=== PATIENT | male | born 1970 | race Caucasian/White ===

== ENCOUNTER 2018-07-02 14:00 | Emergency (ER) | payer OTHER ==
[2018-07-02 14:20] VITALS: BP 130/83; PULSE 90; TEMP 97.8; BMI 25.0
[2018-07-02] MEDS ORDERED: IBUPROFEN 600 MG TABLET (FP) PO ONE ×2 (14:23→14:24)
--- NOTE | 2018-07-02 14:24 | PDOC ---
History of Present Illness - History of Present Illness Initial Comments: 07/02/18 14:33 The patient is a 48 year old male, with no significant past medical history, who presents to the emergency department s/p right shoulder injury with pain to the shoulder. As per patient, yesterday he was performing a swiping motion with his right hand and began to experience discomfort in his right shoulder. He notes decreased ROM of the right shoulder with abduction and external rotation secondary to pain. Patient notes he has injured his right shoulder in the past which he has followed up with an orthopedist for. He denies any weakness or tingling to the extremities. He denies any trauma to the bilateral LE or left UE. He denies any recent fevers, chills, headache or dizziness. He denies any recent nausea, vomit, diarrhea or constipation. He denies any recent chest pain or shortness of breath. He denies any recent dysuria, frequency, urgency or hematuria. Allergies: NKDA Past surgical history: None reported. Social History: Smoker (20 cigarettes per day). Primary Care Physician: Dr. Rimma Charles <Javier Aguilera - Last Filed: 07/02/18 14:33> - General History Source: Patient Exam Limitations: No Limitations <Swetha Rowland - Last Filed: 07/02/18 14:58> - General Chief Complaint: Injury Stated Complaint: RIGHT SHOULDER PAIN Time Seen by Provider: 07/02/18 14:20 Past History <Javier Aguilera - Last Filed: 07/02/18 14:33> - Past Medical History COPD: No - Suicide/Smoking/Psychosocial Hx Smoking History: Current every day smoker Number of Cigarettes Smoked Daily: 20 Information on smoking cessation initiated: Yes 'Breaking Loose' booklet given: 07/02/18 <Swetha Rowland - Last Filed: 07/02/18 14:58> - Past Medical History Allergies/Adverse Reactions: Allergies Allergy/AdvReac Type Severity Reaction Status Date / Time No Known Allergies Allergy Verified 07/02/18 14:03 Home Medications: Ambulatory Orders Ibuprofen 400 mg PO TID PRN 07/02/18 Ibuprofen [Motrin -] 600 mg PO TID #90 tablet 07/02/18 Review of Systems - Review of Systems Able to Perform ROS?: Yes Comments:: 07/02/18 14:34 GENERAL/CONSTITUTIONAL: No fever or chills. No weakness. HEAD, EYES, EARS, NOSE AND THROAT: No change in vision. No ear pain or discharge. No sore throat. CARDIOVASCULAR: No chest pain or shortness of breath. RESPIRATORY: No cough, wheezing, or hemoptysis. GASTROINTESTINAL: No nausea, vomiting, diarrhea or constipation. GENITOURINARY: No dysuria, frequency, or change in urination. +MUSCULOSKELETAL: Right shoulder pain with decreased ROM. No joint or muscle swelling. No neck or back pain. SKIN: No rash NEUROLOGIC: No headache, vertigo, loss of consciousness, or change in strength/ sensation. ENDOCRINE: No increased thirst. No abnormal weight change. HEMATOLOGIC/LYMPHATIC: No anemia, easy bleeding, or history of blood clots. ALLERGIC/IMMUNOLOGIC: No hives or skin allergy. All Other Systems: Reviewed and Negative <Javier Aguilera - Last Filed: 07/02/18 14:33> *Physical Exam - Vital Signs Last Vital Signs Temp Pulse Resp BP Pulse Ox 97.8 F 90 16 130/83 99 07/02/18 14:02 07/02/18 14:02 07/02/18 14:02 07/02/18 14:02 07/02/18 14:02 - Physical Exam Comments: 07/02/18 14:35 GENERAL: Awake, alert, and fully oriented, in no acute distress HEAD: No signs of trauma EYES: PERRLA, EOMI, sclera anicteric, conjunctiva clear ENT: Auricles normal inspection, hearing grossly normal, nares patent. Moist mucosa NECK: Normal ROM, supple, no lymphadenopathy, JVD, or masses LUNGS: Breath sounds equal, clear to auscultation bilaterally. No wheezes, and no crackles HEART: Regular rate and rhythm, normal S1 and S2, no murmurs, rubs or gallops ABDOMEN: Soft, nontender, normoactive bowel sounds. No guarding, no rebound. No masses +EXTREMITIES: Right shoulder: Pain with external rotation and abduction >90 degrees. Elbow and wrist, nontender. Distal extremities are neurovascularly intact. Motor sensation 5/5. Bilateral LE and left UE: Atraumatic. Normal range of motion, no edema to bilateral LE and left UE. No erythema or tenderness. DP/ PT pulses 2+ and symmetric. Warm and well perfused. NEUROLOGICAL: Moves all extremities. Normal speech, normal gait SKIN: Warm, Dry, normal turgor, no rashes or lesions noted. <Javier Aguilera - Last Filed: 07/02/18 14:33> - Vital Signs Last Vital Signs Temp Pulse Resp BP Pulse Ox 97.8 F 90 16 130/83 99 07/02/18 14:02 07/02/18 14:02 07/02/18 14:02 07/02/18 14:02 07/02/18 14:02 <Swetha Rowland - Last Filed: 07/02/18 14:58> ED Treatment Course - Medications Given in the ED: ED Medications Discontinued Medications Generic Name Dose Route Start Last Admin Trade Name Abq PRN Reason Stop Dose Admin Ibuprofen 600 mg 07/02/18 14:24 07/02/18 14:26 Motrin - PO 07/02/18 14:25 600 mg ONCE ONE Administration <Javier Aguilera - Last Filed: 07/02/18 14:33> Medical Decision Making - Medical Decision Making 07/02/18 14:21 48 yo male h/o tobacco use here with c/o right shoulder injury following hitting something out of his gf hand while they were fooling around, now c/o right shoulder, pain. no new numbness or tingling. plan xray r/o fx, pain control. with nsaids. <Swetha Rowland - Last Filed: 07/02/18 14:58> *DC/Admit/Observation/Transfer - Attestations Scribe Attestion: 07/02/18 14:35 Documentation prepared by Javier Aguilera, acting as medical claims assistant for Swetha Rowland MD. <Javier Aguilera - Last Filed: 07/02/18 14:33> <Swetha Rowland - Last Filed: 07/02/18 14:58> Diagnosis at time of Disposition: Shoulder injury - Discharge Dispostion Disposition: HOME Condition at time of disposition: Improved - Prescriptions Prescriptions: Ibuprofen [Motrin -] 600 mg PO TID #90 tablet - Referrals Referrals: Jaz Charles MD [Primary Care Provider] - Ilana Ojeda MD [Non Staff, Medical] - Osmin Judge MD [Staff Physician] - - Patient Instructions Additional Instructions: you should follow up with your orthopedist. Ilana Carr. you can also follow up with dr. judge if you wish. you can take ibuprofen 600 mg every 8 hrs as needed for pain. if an activity or motion with your shoulder hurts you should avoid from doing that motion. you can also take tylenol 500 mg every 6 hrs as needed for pain. you xrays are negative for any broken bones. - Post Discharge Activity
== END 2018-07-02 15:12 | disposition home or self-care (01) ==
LOC: FER 14:00
DX: S49.91XA Unspecified injury of right shoulder and upper arm, initial encounter (principal); X58.XXXA Exposure to other specified factors, initial encounter; Y93.89 Activity, other specified; Y92.89 Other specified places as the place of occurrence of the external cause; F17.210 Nicotine dependence, cigarettes, uncomplicated
CPT/HCPCS: 73030-TC-RT-FY; 99281-25

== ENCOUNTER 2018-11-24 06:04 | Day surgery (SDC) | payer OTHER ==
[2018-11-21 11:51] VITALS: BMI 24.4
[2018-11-24] MEDS ORDERED: ROPIVACAINE HCL 0.5% 30ML VIAL ONE (07:24)
[2018-11-24] MEDS ORDERED: DEXAMETHASONE SOD PHOSPHATE/PF 10 MG/ML SDV ONE (07:24)
[2018-11-24] MEDS ORDERED: MIDAZOLAM HCL 2 MG/2 ML SINGLE DOSE VIAL ONE ×2 (07:24→09:02)
--- NOTE | 2018-11-24 07:35 | OP ---
Operative Note - Note: Operative Date: 11/24/18 Pre-Operative Diagnosis: Right rotator cuff tear Operation: Right shoulder arthroscopy with rotator cuff repair Implants: [employer] SwiveLock x2, [employer] C-Fix x2, [employer] Multifix x1 Post-Operative Diagnosis: Same as Pre-op Surgeon: Osmin Perkins Rug Washer: Naye Xie Anesthesiologist/WATER TREATMENT OPERATOR: Natalie Garcia Anesthesia: General Operative Report Dictated: Yes
[2018-11-24] MEDS ORDERED: PROPOFOL 20 ML ONE ×2 (07:53→08:59)
[2018-11-24] MEDS ORDERED: ceFAZolin SODIUM 1 GM VIAL ONE (07:54)
[2018-11-24] MEDS ORDERED: EPINEPHrine 1:1,000 1 MG/1 ML - 30ML VIAL (INJECTION) ONE (10:35)
[2018-11-24 12:29] VITALS: TEMP 98.3
--- NOTE | 2018-11-24 12:41 | OP ---
DATE OF OPERATION: 11/24/2018 PREOPERATIVE DIAGNOSIS: Right shoulder rotator cuff tear, impingement. POSTOPERATIVE DIAGNOSIS: Right shoulder rotator cuff tear, impingement. PROCEDURE: Right shoulder arthroscopy with repair of supraspinatus, infraspinatus and subscapularis, subacromial decompression. SURGEON: Roel Perrin MD TAXI PROPRIETOR: GINNY Kwon, whose skillful assistance was necessary for the safe and timely performance of this procedure. Ms. Xie was able to provide assistance in positioning, assist in driving the camera, assist in suture passing and suture management as well as the insertion of orthopedic fixation hardware while the surgical clinical reviewer was manipulating complex instrumentation on the back table. ANESTHESIA: Regional plus LMA. POSTOPERATIVE CONDITION: Stable. COMPLICATIONS: None. IMPLANTS: Arthrex SwiveLock x2, [employer] Q-FIX x2, [employer] MULTIFIX x1. INDICATIONS: This is a pleasant gentleman who had been suffering from shoulder pain and weakness. He was found to have a rotator cuff tear on MRI. Treatment options including nonoperative versus operative management were reviewed. Operative risks were reviewed in detail including bleeding, infection, neurovascular injury, need for further surgery, postoperative pain and stiffness, progression of osteoarthritis. We discussed medical risks such as heart attack, stroke, DVT, PE and . I addressed the use of perioperative antibiotic and DVT prophylaxis. I reviewed the lengthy recovery and activity limitations. I addressed all the patient's questions and concerns. He voiced understanding and elected to proceed. PROCEDURE: Patient was brought to the operating room where he was placed in the beach-chair position. He previously had been given a regional block in the preoperative holding area. Care was taken to pad all the bony prominences and place the neck into a neutral position while he was still awake. The patient was then prepped and draped in the usual sterile fashion. A preoperative dose of antibiotics was given and the usual timeout procedure was performed. The bony landmarks were marked out. The posterior viewing portal was then established with an 11 blade. An arthroscope was then passed into the glenohumeral joint. Examination of the joint itself demonstrated minimal articular wear. The anterior portal was now established with spinal needle localization. Examination of the biceps demonstrated no adhesions. Examination of the superior labrum demonstrated some degenerative tearing; however, it was not unstable. The arthroscope was passed anteriorly demonstrating that there was no evidence of a subscapularis and the footprint was seen to be completely devoid of any tendon. There was a high grade partial- thickness tear of the supraspinatus and infraspinatus noted. There was degenerative change throughout the anterior, inferior and posterior labrum; however, no roberto carlos tearing was noted. At this point the shaver was passed in and some debridement was carried along the anterior capsule. The detached end of the subscapularis was identified. A luggage tag type suture was now placed through the end of the subscapularis, which was retracted just past the level of the glenoid. Utilizing additional viewing portal anterolaterally, the shaver was used to define the distal end of the subscapularis tendon. A switching stick was then used with its blunt end to slide along the anterior, superior and posterior aspects of the subscapularis to free it up to gain better mobility as it was not able to be reduced to the footprint. The footprint was debrided down to bleeding bone. This was done using the shaver as well as electrocautery. There was still a significant amount of tension on the subscapularis. Decision was made to now go back and repair the superior portion of the rotator cuff, perhaps relieving some of the tension on the subscapularis. The shaver was passed and the footprint of the supraspinatus and infraspinatus was now debrided down to bleeding bone as well. The arthroscope was passed in the subacromial space. Here the electrocautery was used to provide a subacromial decompression. There was diffuse fraying in the space as well as an additional tear of the rotator cuff noted. Here, a longitudinal tear was noted at the junction of the anterior third and posterior 2/3 of the supraspinatus. No full-thickness tear was noted along the footprint itself. The arthroscope was passed back into the glenohumeral joint. Utilizing percutaneous technique, 2 Q-FIX anchors were drilled as a medial row. They were then passed through the rotator cuff utilizing combination of a suture passer as well as a spinal needle and Prolene suture. The arthroscope was then passed back into the subacromial space. One pair of each suture was now tied, securing down the medial row. The other suture limbs were then tied to each other forming a bridge between the anterior and posterior anchor at the subacromial space. All the sutures were now brought into a lateral row fixation. This was done by abducting the arm, debriding a small area of soft tissue off the bone, and inserting the MULTIFIX anchor on the lateral aspect of the greater tuberosity. This secured the formation into a triangular double-row construct. The excess sutures were now cut. Attention was now turned back to the glenohumeral joint. Here, the previously passed luggage tag sutures, 3 in all, were now used to mobilize down to the lesser tuberosity. We were able to achieve repair utilizing minimal tension. The 2 inferior sutures were loaded into a SwiveLock anchor which was then punched and inserted into the lesser tuberosity. This reduced the subscapularis onto its footprint. A second anchor was used to secure the more superior border. These excess sutures were then cut. At this point, the excess fluid was withdrawn from the joint. The portals were sutured using 3-0 nylon. Sterile dressings were placed. It should be noted that during the case the patient became a bit agitated while on sedation. An LMA was placed to maintain patient under proper anesthetic control. At the end of the case it was noted he had subsided significantly down on the table and was resting his right axillary area somewhat on the kidney rest. This was corrected as soon as it was identified and patient was transferred to recovery room in stable condition. ROEL PERRIN M.D. [id number] MTDD
[2018-11-24] MEDS ORDERED: oxyCODONE HCL 5 MG TABLET ONE (12:42)
[2018-11-24] MEDS ORDERED: oxyCODONE HCL 5 MG TABLET PO ONE (12:45)
[2018-11-24] MEDS ORDERED: oxyCODONE HCL 5 MG TABLET PO PRN (12:51)
[2018-11-24] MEDS ORDERED: ONDANSETRON 4 MG/2 ML VIAL IVPUSH PRN (12:51)
[2018-11-24] MEDS ORDERED: LACTATED RINGERS SOLUTION 1,000 ML IV SCH (13:00)
[2018-11-24 14:01] VITALS: PULSE 86
[2018-11-24 14:10] VITALS: BP 138/80
== END 2018-11-24 13:45 | disposition home or self-care (01) ==
LOC: FASU 06:04 → MERGE 06:04 → FASU 13:45
PROVIDERS: ATTEND Orthopaedic Surgery Sports Medicine
PROC: 0RNJ4ZZ Release Right Shoulder Joint, Percutaneous Endoscopic Approach (ICD-10-PCS; 2018-11-24)
PROC: 0RBJ4ZZ Excision of Right Shoulder Joint, Percutaneous Endoscopic Approach (ICD-10-PCS; 2018-11-24)
PROC: 0LQ14ZZ Repair Right Shoulder Tendon, Percutaneous Endoscopic Approach (ICD-10-PCS; principal; 2018-11-24 08:20)
PROC: 0RHJ44Z Insertion of Internal Fixation Device into Right Shoulder Joint, Percutaneous Endoscopic Approach (ICD-10-PCS; 2018-11-24 08:20)
DX: M75.111 Incomplete rotator cuff tear or rupture of right shoulder, not specified as traumatic (principal); M75.41 Impingement syndrome of right shoulder
CPT/HCPCS: 94760

== ENCOUNTER → 2019-02-02 | Day surgery (SDC) | payer OTHER | LOC: JASU-ENDO 11:02 ==

== ENCOUNTER 2019-02-16 08:17 | Day surgery (SDC) | payer OTHER ==
[2019-02-15 11:26] VITALS: BMI 23.3
[2019-02-16] MEDS ORDERED: MIDAZOLAM HCL 2 MG/2 ML SINGLE DOSE VIAL ONE (08:32)
[2019-02-16 09:29] VITALS: TEMP 98.3
[2019-02-16 10:25] VITALS: BP 117/71; PULSE 53
--- NOTE | 2019-02-17 15:45 | PATH ---
Surgical Pathology Report Patient Name: AMY TERRY [facility]. Rec. #: [id number] /Age/Gender: 1970 (Age: 48) / M Account: [id number] Location: [facility]-ENDOSCOPY Taken: 02/16/2019 Received: 02/16/2019 Reported: 02/17/2019 Physicians: Nilay Adames D.O. Specimen(s) Received A: BX 2ND PORTION DUODENUM AND BULB B: BX ANTRUM C: BX BODY Clinical History Weight loss Postoperative diagnosis: Gastritis Final Diagnosis A. SECOND PORTION OF DUODENUM AND BULB, BIOPSY: DUODENAL MUCOSA WITH MILD CHRONIC DUODENITIS. NO HISTOLOGIC EVIDENCE OF CELIAC DISEASE. B. ANTRUM, BIOPSY: GASTRIC MUCOSA WITH MILD CHRONIC GASTRITIS. IMMUNOSTAIN FOR H. PYLORI IS NEGATIVE. NEGATIVE FOR INTESTINAL METAPLASIA. C. BODY, BIOPSY: GASTRIC MUCOSA WITH MILD CHRONIC GASTRITIS. IMMUNOSTAIN FOR H. PYLORI IS NEGATIVE. NEGATIVE FOR INTESTINAL METAPLASIA. Electronically Signed Cecy Shabazz M.D. Gross Description A. Received in formalin, labeled "biopsy second portion of duodenum and bulb" are 6 boyce, irregular portions of soft tissue ranging from 0.2-0.4 cm. in greatest dimension. The specimens are submitted in toto in one cassette. B. Received in formalin, labeled "biopsy antrum" is a boyce, irregular portion of soft tissue measuring 0.5 cm. in greatest dimension. The specimen is submitted in toto in one cassette. C. Received in formalin, labeled "biopsy body of stomach" are 3 boyce, irregular portions of soft tissue ranging from 0.2-0.5 cm. in greatest dimension. The specimens are submitted in toto in one cassette. /02/16/2019 [facility]02/16/2019
== END 2019-02-16 10:25 | disposition home or self-care (01) ==
LOC: JASU-ENDO 08:17
PROVIDERS: ATTEND Internal Medicine Gastroenterology
PROC: 0DB68ZX Excision of Stomach, Via Natural or Artificial Opening Endoscopic, Diagnostic (ICD-10-PCS; 2019-02-16)
PROC: 0DB98ZX Excision of Duodenum, Via Natural or Artificial Opening Endoscopic, Diagnostic (ICD-10-PCS; principal; 2019-02-16 09:00)
DX: K29.50 Unspecified chronic gastritis without bleeding (principal); K29.80 Duodenitis without bleeding
CPT/HCPCS: 88305-TC; 88342-TC

== ENCOUNTER 2020-11-27 22:55 | Emergency (ER) | payer OTHER ==
[2020-11-27 23:09] VITALS: BP 151/99; PULSE 88; TEMP 98.3; BMI 23.0
[2020-11-28 00:43] LABS: BASO % 1.1 % (0-2.0); HEMATOCRIT 43.6 % (35.4-49); HEMOGLOBIN 14.8 GM/dL (11.7-16.9); MCH 31.5 pg (25.7-33.7); MCHC 33.9 g/dl (32.0-35.9); MEAN PLT VOLUME 8.8 fl (7.5-11.1); MONO % 6.7 % (3.8-10.2); NEUT % 68.2 % (42.8-82.8); PLATELET COUNT 254 K/MM3 (134-434); RBC 4.69 M/mm3 (4.00-5.60); RDW 13.5 % (11.9-15.9); WHITE BLOOD COUNT 10.7 K/mm3 (4.0-10.0)
== END 2020-11-28 02:09 | disposition left against medical advice (07) ==
LOC: JER 22:55
DX: R06.02 Shortness of breath (principal)
CPT/HCPCS: 36415; 82550; 84484; 85025; 93005; 93010; 99285-25

== ENCOUNTER 2021-11-04 10:00 | Emergency (ER) | payer OTHER ==
[2021-11-04 10:13] VITALS: BP 113/68; PULSE 89; TEMP 98.3; BMI 23.7
[2021-11-04] MEDS ORDERED: KETOROLAC TROMETHAMINE 60 MG/2 ML VIAL IM ONE (10:53)
[2021-11-04] MEDS ORDERED: KETOROLAC TROMETHAMINE 60 MG/2 ML VIAL ONE (11:05)
== END 2021-11-04 12:15 | disposition home or self-care (01) ==
LOC: JERFT 10:00
PROC: 3E0233Z Introduction of Anti-inflammatory into Muscle, Percutaneous Approach (ICD-10-PCS; principal; 2021-11-04)
DX: S46.911A Strain of unspecified muscle, fascia and tendon at shoulder and upper arm level, right arm, initial encounter (principal); X50.0XXA Overexertion from strenuous movement or load, initial encounter
CPT/HCPCS: 73030-TC-RT-FY; 99284-25

== ENCOUNTER 2023-04-29 13:33 | Emergency (ER) | payer OTHER ==
[2023-04-29 14:15] VITALS: BP 102/62; PULSE 72; RESP 13; TEMP 98.6; BMI 25.3
== END 2023-04-29 16:27 | disposition home or self-care (01) ==
LOC: JER 13:33
DX: F11.90 Opioid use, unspecified, uncomplicated (principal)
CPT/HCPCS: 93005; 93010; 99282-25

== ENCOUNTER 2023-09-14 04:27 | Day surgery (SDC) | payer OTHER ==
[2023-09-08 16:27] VITALS: BMI 24.1
[2023-09-14 08:38] VITALS: TEMP 98.2
[2023-09-14 11:44] VITALS: RESP 20
[2023-09-14 11:45] VITALS: BP 130/81; PULSE 68
== END 2023-09-14 11:47 | disposition home or self-care (01) ==
LOC: JASU-ENDO 04:27
PROVIDERS: ATTEND Internal Medicine Gastroenterology
PROC: 0DJD8ZZ Inspection of Lower Intestinal Tract, Via Natural or Artificial Opening Endoscopic (ICD-10-PCS; principal; 2023-09-14 10:00)
DX: Z12.11 Encounter for screening for malignant neoplasm of colon (principal); K64.8 Other hemorrhoids

== ENCOUNTER → 2024-07-13 | Day surgery (SDC) | payer OTHER ==
[2024-07-10 17:20] VITALS: BMI 25.0
[~2024-07-13] MED LIST: ALBUTEROL SO4 HFA INHALER IH ONE; DEXAMETHASONE SOD PHOSPHATE 4 MG/1 ML VIAL ONE; GLYCOPYRROLATE 0.2 MG/1 ML VIAL ONE; KETOROLAC TROMETHAMINE 30 MG/1 ML VIAL ONE; MIDAZOLAM HCL 2 MG/2 ML SINGLE DOSE VIAL ONE; ONDANSETRON 4 MG/2 ML VIAL ONE; PROPOFOL 20 ML ONE; SUCCINYLCHOLINE CHLORIDE 200 MG/10 ML SYRINGE ONE; ceFAZolin SODIUM 1 GM VIAL ONE; oxyCODONE HCL 5 MG TABLET PO PRN
[2024-07-13] MEDS: ceFAZolin 2 GRAM PREMIX BAG IVPB ONE (12:25)
[2024-07-13] MEDS: LACTATED RINGERS SOLUTION 1,000 ML IV SCH (13:47)
[2024-07-13 14:34] VITALS: BP 128/87; PULSE 70; RESP 15; TEMP 97
== END | disposition home or self-care (01) ==
LOC: JASU-SURG 04:21
PROVIDERS: ATTEND Surgery
PROC: 06DY0ZZ Extraction of Lower Vein, Open Approach (ICD-10-PCS; principal; 2024-07-13 09:15)
DX: I83.812 Varicose veins of left lower extremity with pain (principal)
CPT/HCPCS: 88304-TC; 94760; J0131